=== PATIENT | female | born 1960 | race Caucasian/White ===

== ENCOUNTER → 2020-12-06 | Day surgery (SDC) | payer OTHER ==
[~2020-12-06] MED LIST: ACETAMINOPHEN500 M1 PO; AIMOVIG AU70 MG/1 ML SC; CEFUROXIME250 MG PO; CELEXA20 MG PO; COLACE100 MG PO; CYMBALTA60 MG PO; DICLOFEN 3%-HYA30 GM TOP; ELAVIL25 MG PO; ESTRACE1 MG PO; FLONASE ALLER15.8 ML; IRON325 M1 PO; LIPITOR20 MG PO; MILK OF MA400 MG/5 M PO; MIRALAX17 GM PO; NEURONTIN300 MG PO; OXY-IR 5MG5 MG PO; PHENERGAN25 M1 PO; PREVACID30 M1 PO; PROCTOZONE-HC 230 GM TOP; PROPRANOLOL HCL10 MG PO; RIZATRIPTAN10 MG PO; SYNTHROID50 MCG PO; TOPIRAMATE ER150 MG PO; VANCOMYCIN HCL1 GM PO; VITAMIN D2000 UNIT PO
== END | disposition home or self-care (01) ==
LOC: FAS 06:57
DX: K60.2 Anal fissure, unspecified (principal); K59.4 Anal spasm; K21.9 Gastro-esophageal reflux disease without esophagitis; N18.30 Chronic kidney disease, stage 3 unspecified; E03.9 Hypothyroidism, unspecified; F41.9 Anxiety disorder, unspecified; M19.90 Unspecified osteoarthritis, unspecified site; G89.29 Other chronic pain; M54.9 Dorsalgia, unspecified; K59.09 Other constipation; F32.9 Major depressive disorder, single episode, unspecified; E78.5 Hyperlipidemia, unspecified; Z79.899 Other long term (current) drug therapy; Z88.2 Allergy status to sulfonamides; Z88.6 Allergy status to analgesic agent; Z20.822 Contact with and (suspected) exposure to COVID-19
CPT/HCPCS: J0585; J2250; J2405; J2704; J3010; J7120; U0002

== ENCOUNTER 2021-11-06 09:07 | Emergency (ER) | payer OTHER ==
[2021-11-06 10:14] LABS: EOSINOPHIL 2.3 % (0-5); HCT 40.9 % (37.0-47.0); HGB 13.9 g/dl (12.5-16.0); LYMPHOCYTE 17.3 % (15-48); MCH 30.6 pg (25.0-31.0); MCV 90.1 fL (78.0-100.0); MONOCYTE 13.8 % (0-12); NRBC 0; PLT 196 K/uL (150-400); RBC 4.54 M/uL (4.20-5.40); RDW 13.4 % (11.5-14.0); WBC 4.8 K/uL (4.0-10.5)
[2021-11-06 10:37] LABS: BUN/CREAT RATIO (CALC) 15.3 RATIO; CREATININE 1.11 mg/dL (0.51-0.95); POTASSIUM 2.9 mmol/L (3.5-5.1)
[2021-11-06] MEDS ORDERED: LOMOTIL1 EACH PO (10:52)
== END 2021-11-06 11:14 | disposition home or self-care (01) ==
LOC: FER 09:07
PROVIDERS: Emergency Medicine
DX: U07.1 COVID-19 (principal); N18.30 Chronic kidney disease, stage 3 unspecified; Z88.2 Allergy status to sulfonamides; Z88.6 Allergy status to analgesic agent
CPT/HCPCS: 36415; 74022; 80048; 85025; 87324; 87449